=== PATIENT | male | born 1975 | race African-American/Black ===

== ENCOUNTER 2016-12-01 18:39 | Emergency (ER) | payer OTHER ==
[~2016-12-01] VITALS: Ht 190.5 cm; Wt 124.0 kg
[~2016-12-01 18:39] MED LIST: Z.0.NO CURRENT MEDS
[2016-12-01 19:16] VITALS: BP 144/102; PULSE 97; RESP 18; TEMP 99; O2SAT 99
[2016-12-01] MEDS ORDERED: ALLO100T PO (19:25)
[2016-12-01] MEDS ORDERED: HYDR12.57 PO (19:25)
[2016-12-01] MEDS ORDERED: AMLO2.5T PO (19:25)
--- NOTE | 2016-12-01 21:20 | RADRPT ---
EXAM DATE/TIME: 12/01/2016 20:06 [place] COMPARISON: No previous studies available for comparison. INDICATIONS : Right knee pain post fall. MEDICAL HISTORY : None. SURGICAL HISTORY : None. ENCOUNTER: Initial ACUITY: 1 day PAIN SCORE: 8/10 LOCATION: Right knee FINDINGS: 5 views of the right knee demonstrate no fracture or dislocation. Mineralization is within normal dent its. There are tricompartmental osteophytes with medial joint space narrowing. No joint effusion is i dentified. No soft tissue abnormality is identified. CONCLUSION: No acute right knee abnormality is identified. 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 J Luis Chapman MD on December 01, 2016 at 20:54 Board Certified Radiologist. This report was verified electronically.
--- NOTE | 2016-12-01 21:26 | PD ---
HPI Chief Complaint: Musculoskeletal Complaint Time Seen by Provider: 19:50 Travel History International Travel<30 days: No Contact w/Intl Traveler<30days: No Traveled to known affect area: No History of Present Illness HPI 41-year-old male presents emergency room for evaluation of bilateral knee pain status post fall 3 days ago. Patient reports while walking his left knee gave out causing him to fall onto her right flexed knee. Since that time his right knee has become increasingly more painful and swollen. The pain is located to the anterior aspect of the knee, nonradiating, worse with flexion and walking motion, relieved with rest, severity 6 out of 10. He also reports mild left knee pain in the lateral aspect. He denies numbness/tingling/weakness of the extremities. Patient does have difficulty ambulating due to the knee pain. Patient establish with orthopedist due to right knee fusion in the past. PFSH Past Medical History Diminished Hearing: No Gout: Yes Hypertension: Yes Immunizations Current: Yes Tetanus Vaccination: > 5 Years Influenza Vaccination: No ?: Not Past Surgical History Surgical History: No Previous Surgery Social History Alcohol Use: Yes (Occ.) Tobacco Use: No Substance Use: No Allergies-Medications (Allergen,Severity, Reaction): Coded Allergies: Shellfish (Verified Allergy, Severe, SOB, hives, 12/01/16) Reported Meds & Prescriptions Reported Meds & Active Scripts Active Reported Hydrochlorothiazide 12.5 Mg Cap 12.5 Mg PO DAILY Amlodipine (Amlodipine Besylate) 2.5 Mg Tab 2.5 Mg PO DAILY Allopurinol 100 Mg Tab 100 Mg PO BID Review of Systems Except as stated in HPI: all other systems reviewed are Neg Musculoskeletal: Positive: Other (bilateral knee pain) Physical Exam Narrative GENERAL: Alert, well appearing male in no acute distress SKIN: Focused skin assessment warm/dry. HEAD: Atraumatic. Normocephalic. EYES: Pupils equal and round. No scleral icterus. No injection or drainage. ENT: No nasal bleeding or discharge. Mucous membranes pink and moist. NECK: Trachea midline. No JVD. CARDIOVASCULAR: Regular rate and rhythm. No murmur appreciated. RESPIRATORY: No accessory muscle use. Clear to auscultation. Breath sounds equal bilaterally. GASTROINTESTINAL: Abdomen soft, non-tender, nondistended. Hepatic and splenic margins not palpable. MUSCULOSKELETAL: No obvious deformities. No clubbing. No cyanosis. Right knee : Notable swelling and tenderness of the anterior aspect. No erythema or warmth. Exam limited due to pain. Joint is stable. Left knee: No swelling. Mild tenderness of the lateral soft tissue. No bony point tenderness. No effusion. Full range of motion. Joint is stable. 2+ distal pulses. Extremities are neurovascularly intact. NEUROLOGICAL: Awake and alert. No obvious cranial nerve deficits. Motor grossly within normal limits. Normal speech. PSYCHIATRIC: Appropriate mood and affect; insight and judgment normal. Data Data Last Documented VS Vital Signs Date Time Temp Pulse Resp B/P Pulse Ox O2 Delivery O2 Flow Rate FiO2 12/01/16 19:16 99.0 97 18 144/102 99 Orders Knee, Complete (4vws) (12/01/16 ) Ketorolac Inj (Toradol Inj) (12/01/16 21:45) MDM Medical Decision Making Medical Screen Exam Complete: Yes Emergency Medical Condition: Yes Differential Diagnosis Knee painsprain versus strain versus fracture Narrative Course 41-year-old male presents emergency department for evaluation of bilateral knee pain. Patient reports that his left knee gave out causing him to fall onto her right flexing several days ago. Since then right knee has become increasingly painful and swollen. X-ray pending X-ray right knee negative for acute fracture. Diagnosis Primary Impression: Right knee sprain Qualified Code: S83.91XA - Sprain of right knee, unspecified ligament, initial encounter Additional Impression: Left knee sprain Qualified Code: S83.422A - Sprain of lateral collateral ligament of left knee , initial encounter Referrals: Orthopedist Additional Instructions: Wherein knee braces as instructed. Ice and elevate the extremities. Make an appointment for follow-up with orthopedics this week. Turn to the emergency department if new or worsening symptoms. Scripts Ibuprofen 800 Mg Btb006 Mg PO Q8H PRN (Pain/Inflammation) #30 TAB Prov:Isa Vasquez 12/01/16 Disposition: 01 DISCHARGE HOME Condition: Stable Isa Vasquez Dec 01, 2016 21:26
[2016-12-01] MEDS ORDERED: IBUP800T23 PO (21:37)
[2016-12-01] MEDS ORDERED: KETOROLAC TROMETHAMINE 60 MG/2 ML (IM) VIAL IM ONE (21:45)
== END 2016-12-01 21:40 | disposition home or self-care (01) ==
LOC: PHEFT 18:39
DX: S83.91XA Sprain of unspecified site of right knee, initial encounter (principal); S83.422A Sprain of lateral collateral ligament of left knee, initial encounter; I10 Essential (primary) hypertension; M10.9 Gout, unspecified; W18.30XA Fall on same level, unspecified, initial encounter; Y93.9 Activity, unspecified; Y92.9 Unspecified place or not applicable; Y99.8 Other external cause status
CPT/HCPCS: 73564; 96372; 99284; J1885